=== PATIENT | male | born 1985 | race African-American/Black ===

== ENCOUNTER 2024-09-09 13:18 | Inpatient (IN) | payer OTHER ==
[2024-09-09 14:22] VITALS: BMI 24.2
[2024-09-09] MEDS ORDERED: DICYCLOMINE HCL 10 MG CAPSULE PO PRN (15:04)
[2024-09-09] MEDS ORDERED: hydrOXYzine PAMOATE 25 MG CAPSULE (FP) PO PRN (15:04)
[2024-09-09] MEDS ORDERED: ONDANSETRON *ODT* 4 MG TABLET SL PRN (15:04)
[2024-09-09] MEDS ORDERED: guaiFENesin 600 MG TABLET.ER (FP) PO PRN (15:04)
[2024-09-09] MEDS ORDERED: IBUPROFEN 600 MG TABLET (FP) PO PRN (15:04)
[2024-09-09] MEDS ORDERED: NICOTINE POLACRILEX 2 MG GUM BUC PRN (15:04)
[2024-09-09] MEDS ORDERED: BENZONATATE 200 MG CAPSULE PO PRN (15:04)
[2024-09-09] MEDS ORDERED: MAGNESIUM HYDROX 2400MG/30ML ORAL SUSPENSION 30 ML CUP PO PRN (15:04)
[2024-09-09] MEDS ORDERED: BENZOCAINE/MENTHOL (CHLORASEPTIC ) LOZENGE MM PRN (15:04)
[2024-09-09] MEDS ORDERED: ACETAMINOPHEN 325 MG TABLET (FP) PO PRN (15:04)
[2024-09-09] MEDS ORDERED: METHOCARBAMOL 500 MG TABLET PO PRN (15:04)
[2024-09-09] MEDS ORDERED: NALOXONE (NARCAN) HCL 4 MG/0.1 ML SPRAY NS PRN (15:04)
[2024-09-09] MEDS ORDERED: IBUPROFEN 400 MG TABLET (FP) PO PRN (15:04)
[2024-09-09] MEDS ORDERED: BISMUTH SUBSALICYLATE 524 MG/30 ML PO PRN (15:04)
[2024-09-09] MEDS ORDERED: MAG HYDROX/AL HYDROX/SIMETH 30 ML UNIT-DOSE CUP PO PRN (15:04)
[2024-09-09] MEDS ORDERED: LORazepam 1 MG TABLET PO PRN (15:04)
[2024-09-09] MEDS ORDERED: POLYETHYLENE GLYCOL (HEALTHYLAX) 3350 17 GM PACKET PO PRN (15:04)
[2024-09-09] MEDS ORDERED: LOPERAMIDE HCL 2 MG CAPSULE PO PRN (15:04)
[2024-09-09] MEDS: NALTREXONE HCL 50 MG TABLET PO ONE (19:22)
[2024-09-09] MEDS: LORazepam 2 MG TABLET PO SCH (19:26)
[2024-09-09 21:03] VITALS: BP 119/83; PULSE 70; RESP 18; TEMP 97.5
[2024-09-09] MEDS ORDERED: MELATONIN 5 MG TABLETS PO SCH (22:00)
[2024-09-09] MEDS ORDERED: THIAMINE 100 MG TABLET PO SCH (22:00)
[2024-09-10] MEDS ORDERED: NALTREXONE HCL 50 MG TABLET PO SCH (10:00)
[2024-09-10] MEDS ORDERED: NICOTINE 21 MG/24 HOURS TOPICAL PATCH TD SCH (10:00)
[2024-09-10] MEDS ORDERED: PRENATAL VITAMINS W/ FOLIC ACID TABLET (FP) PO SCH (10:00)
[2024-09-11] MEDS ORDERED: LORazepam 1 MG TABLET PO SCH (05:00)
[2024-09-12] MEDS ORDERED: LORazepam 0.5 MG TABLET PO PRN
[2024-09-12] MEDS ORDERED: LORazepam 0.5 MG TABLET PO SCH (05:00)
[2024-09-13] MEDS ORDERED: LORazepam 0.5 MG TABLET PO ONE (05:00)
== END 2024-09-10 08:31 | disposition left against medical advice (07) | DRG 774 ==
LOC: YASAS 13:18 → Y6N 16:10
PROVIDERS: ADMIT Allergy & Immunology; ATTEND Allergy & Immunology
PROC: HZ2ZZZZ Detoxification Services for Substance Abuse Treatment (ICD-10-PCS; principal; 2024-09-09)
DX: F10.230 Alcohol dependence with withdrawal, uncomplicated (principal); F14.20 Cocaine dependence, uncomplicated; F12.20 Cannabis dependence, uncomplicated; F17.210 Nicotine dependence, cigarettes, uncomplicated; F31.9 Bipolar disorder, unspecified; M25.561 Pain in right knee; F91.8 Other conduct disorders; Z91.199 Patient's noncompliance with other medical treatment and regimen due to unspecified reason
CPT/HCPCS: 80305; 80307; 93005; 93010

== ENCOUNTER 2024-09-28 02:22 | Emergency (ER) | payer OTHER ==
[2024-09-28 02:46] VITALS: BP 108/70; PULSE 93; RESP 20; TEMP 98.8; BMI 26.7
== END 2024-09-28 04:10 | disposition home or self-care (01) ==
LOC: JER 02:22
DX: U07.1 COVID-19 (principal); R11.0 Nausea; R09.81 Nasal congestion; M79.10 Myalgia, unspecified site; R07.89 Other chest pain
CPT/HCPCS: 71045-TC-FY; 93005; 93010; 99284-25